=== PATIENT | female | born 1980 | race Caucasian/White ===

== ENCOUNTER 2017-11-24 08:05 | Outpatient (CLI) | payer OTHER ==
[~2017-11-24] VITALS: Ht 154.9 cm; Wt 60.5 kg
--- NOTE | ~2017-11-24 | HEMODYNAMI ---
PATIENT:GIOVANNA ADDISON MEDICAL RECORD: [id number] : 78 LOCATION:[facility] ADMISSION DATE: 11/24/17 Generatedon:11/24/20179:47 Patient name: GIOVANNA ADDISON Patient #: [id number] SSN: : 1980 Date of study: 11/24/2017 Page: Of Hemodynamic Procedure Report Patient Data Patient Demographics Procedure consent was obtained First Name: GIOVANNA Gender: Female Last Name: CYN : 1980 Patient #: [id number] Age: 37 year(s) Race: Unknown Additional ID: [id number] Contact details Address: [place] [address] State: [place] City: [place] Zip code: [address] Past Medical History Allergies Allergen Reaction Date Comments Reported Shellfish 11/24/2017 Penicillins 11/24/2017 Other allergy 11/24/2017 keflex, amoxicillin, bactrim Admission Admission Data Admission Date: 11/24/2017 Admission Time: 8:05 Procedure Procedure Types Cath Procedure Diagnostic Procedure BRIJESH Procedure Description Procedure Date Procedure Date: 11/24/2017 Procedure Start Time: 8:55 Procedure Staff Name Function Shashi Smith MD Performing Physician Megan Pérez RT Monitor Leandro Taylor RT Scrub Corey Lundberg RN Nurse Preston Price Utilization Management Nurse Fernando Raymond [facility] Additional personnel Procedure Data Procedure Complications No complications Procedure Medications Medication Administration Route Dosage 0.9% NaCl I.V. 100 ml/hr Oxygen etCO2 Nasal cannula 2 l/min Hurricaine [place] P.O. Sprays Refer to Anesthesia Notes for Sedation Medications Hemodynamics Rest Heart Rate: 74 (bpm) Snapshots Pre Cath Intra NCS Post Cath Vital Signs Time Heart Resp SPO2 etCO2 NIBP (mmHg) Rhythm Pain Sedation Rate (ipm) (%) (mmHg) Status Level (bpm) 9:08:17 75 16 100 0 161/83(141) NSR 0 (11) 10(A) , No pain 9:13:01 74 15 100 35.3 153/90(122) NSR 0 (11) 10(A) , No pain 9:17:40 69 18 99 26.3 150/96(126) NSR 0 (11) 10(A) , No pain 9:22:59 72 14 99 18 167/105(122) NSR 0 (11) 10(A) , No pain 9:27:44 70 19 99 32.3 157/86(122) NSR 0 (11) 10(A) , No pain 9:32:29 68 18 99 34.6 158/89(125) NSR 0 (11) 10(A) , No pain 9:42:29 70 97 0 123/68(103) NSR 0 (11) 9(A) , No pain 9:47:10 71 21 97 41.4 118/60(89) NSR 0 (11) 9(A) , No pain Medications Time Medication Route Dose Verified Delivered Reason Notes Effectiv eness by by 9:12:33 0.9% NaCl I.V. 100 Corey Corey Per ml/hr Tamika Lundberg physician RN RN 9:12:45 Oxygen etCO2 2 Corey Corey Per Nasal l/min Tamika Lundberg physician cannula RN RN 9:32:24 Hurricaine P.O. Sprays Corey Danielle for local [place] Tamika Smith MD anesthetic RN 9:34:10 Refer to Corey Danielle for Anesthesia Tamika Smith MD sedation Notes for RN Sedation Medications Procedure Log Time Note 8:55:19 PRESTON CARRILLO NOTIFIED. WILL BE READY AT 0930. 8:55:25 ANESTHESIA NOTIFIED. WILL BE HERE AT [address] ARROYO. 8:57:29 Corey Lundberg RN sent for patient. Start room use. 8:57:30 Time tracking: Regular hours (M-F 7:00 - 5:00) 8:57:35 Plan of Care:Hemodynamics will remain stable., Cardiac rhythm will remain stable., Comfort level will be maintained., Respiratory function will remain adequate., Patient/ family verbilizes understanding of procedure., Procedure tolerated without complication., Recovers from procedure without complications.. 9:02:53 Patient arrived from Pre/Post Procedure Room to [facility] 1. Patient remains on bed/stretcher for procedure. 9:02:55 Warm blankets applied, and daysi hugger turned on for patient comfort. 9:02:55 Correct patient and procedure confirmed by team. 9:02:57 Signed procedure consent form obtained from patient. 9:02:58 ECG and BP/O2 sat monitors applied to patient. 9:07:23 Vital chart was started 9:07:37 Full Disclosure recording started 9:07:41 Rhythm: sinus rhythm 9:07:52 H&P Date Dictated: 11/17/2017 Within 30 days and on chart., H&P Addendum completed by physician on day of procedure. (MUST COMPLETE FOR ALL OUTPATIENTS). 9:07:54 Pre-procedure instructions explained to patient. 9:07:55 Pre-op teaching completed and patient verbalized understanding. 9:07:59 Family in patients room. 9:08:01 Patient NPO since Midnight. 9:08:13 Patient allergic to Shellfish 9:08:22 Patient allergic to Penicillins 9:08:51 Patient allergic to Other allergykeflex, amoxicillin, bactrim 9:08:53 Is the patient allergic to Iodine/contrast media? No. 9:08:54 Was the patient premedicated? Yes 9:10:05 Is patient on blood thinner?No 9:10:07 Patient diabetic? No. 9:10:11 Previous problem with sedation/anesthesia? No ? 9:10:12 Snore? Yes 9:10:14 Sleep apnea? No 9:10:15 Deviated septum? No 9:10:16 Opens mouth fully? Yes 9:10:16 Sticks out tongue? Yes 9:10:24 Airway obstruction? Yes Asthma 9:10:27 Dentures? No ? 9:11:04 Pre procedure: right dorsailis pedis pulse 2+ Normal; easily identifiable; not easily obliterated 9:11:06 Modified Amando's test Ulnar < 7 seconds 9:11:07 Patient pain scale 0/10 ?. 9:11:14 IV patent on arrival in left hand with 0.9% NaCl at [facility]. 9:11:18 Lab results completed and on chart. 9:12:33 0.9% NaCl 100 ml/hr I.V. was administered by Corey Lundberg RN; Per physician; 9:12:42 Baseline sample Acquired. 9:12:45 Oxygen 2 l/min etCO2 Nasal cannula was administered by Corey Lundberg RN; Per physician; 9:20:02 Preston Price Aoc Operations Intelligence Officer present for BRIJESH. 9:26:29 Fernando Raymond GRAIN INSPECTOR present and monitoring patient for TIVA. 9:32:20 Final Timeout: patient, procedure, and site verified with staff and physician. All members of the team are in agreement. 9:32:24 Hurricaine [place] Sprays P.O. was administered by Shashi Smith MD; for local anesthetic; 9:32:31 Physical assessment completed. ASA score P 2 - A patient with mild systemic disease as per Shashi Smith MD. 9:32:36 Sedation plan: TIVA Medication:Propofol 9:32:43 Right Radial site verified by team. 9:34:10 Refer to Anesthesia Notes for Sedation Medications was administered by Shashi Smith MD; for sedation; 9:37:38 Use device set Radial Dx or PCI 9:37:39 ACIST Syringe (81397) opened to sterile field. 9:37:40 Medline Cath Pack ([id number]) opened to sterile field. 9:37:40 Bag Decanter (2002S) opened to sterile field. 9:37:41 DIAGNOSTIC WIRE .035 260cm J wire (448954) opened to sterile field. 9:37:42 ACIST Hand Control (62791) opened to sterile field. 9:37:42 ACIST Manifold (54338) opened to sterile field. 9:37:44 Tegaderm 4 x 4 (1626W) opened to sterile field. 9:37:45 MBrace Wrist Support ([id number]) opened to sterile field. 9:37:48 SHEATH 6Fr Prelude Radial ([id number]) opened to sterile field. 9:37:57 BRIJESH started. 9:41:31 BRIJESH completed. 9:41:36 Procedure ended.(Physican Out) 9:41:[address] SMITH. 9:41:57 Sharps counted by scrub and verified by R.N. 9:41:58 Insertion/operative site no bleeding no hematoma. 9:42:10 Post procedure rhythm: unchanged. 9:42:27 Post procedure instruction explained to patient.Patient verbalizes understanding. 9:42:28 Patient needs reinforcement of post procedure teaching. 9:42:35 Procedure type changed to Cath procedure, Diagnostic procedure, BRIJESH 9:42:39 Procedure Complication : No complications 9:42:41 See physician's report for complete and final results. 9:43:15 Report given to Pre/Post Procedure Room. 9:47:23 Vital chart was stopped 9:47:25 Patient transfered to Pre/Post Procedure Room with Stretcher. 9:47:30 End room use (Document Last) Device Usage Item Name Manufacture Quantity Catalog Number Hospital Part Current M inimal Lot# / Charge Number Stock Stock Serial# Code ACIST Syringe Acist 1 10447 279049 258059 003044 2 0 (35866) Medical Systems Inc Medline Cath Cardinal 1 [id number] 079648 92990 132655 5 Pack Health ([id number]) Bag Decanter Microtek 1 2002S 732482 46749 115980 5 (2001S) Medical Inc. DIAGNOSTIC WIRE St Otf 1 262800 261905 166649 379004 3 0 .035 260cm J wire (432122) ACIST Hand Acist 1 89112 101446 956068 596288 5 Control (80704) Medical Systems Inc ACIST Manifold Acist 1 11825 804556 632908 425817 5 (74752) Medical Systems Inc Tegaderm 4 x 4 3M 1 1626W 912202 002807 536492 5 (1626W) MBrace Wrist Advanced 1 140-0250-00 140277 75607 457846 5 Support Vascular ([id number]) Dynamics SHEATH 6Fr Merit 1 [id number] 404768 202820 688511 5 Prelude Radial Medical ([id number]) Signature Audit [place] Stage Time Signature Unsigned Intra-Procedure 11/24/2017 Megan 9:47:49 AM Counts RT(R) Signatures Monitor : Megan Signature : Counts RT Date : Time : [facility] [address] [facility] [place] [address]
--- NOTE | ~2017-11-24 | HEMODYNAMI ---
PATIENT:GIOVANNA ADDISON MEDICAL RECORD: [id number] : 78 LOCATION:[facility] ADMISSION DATE: 11/24/17 Generatedon:11/24/20179:52 Patient name: GIOVANNA ADDISON Patient #: [id number] SSN: : 1980 Date of study: 11/24/2017 Page: Of Hemodynamic Procedure Report Patient Data Patient Demographics Procedure consent was obtained First Name: GIOVANNA Gender: Female Last Name: CYN : 1980 Patient #: [id number] Age: 37 year(s) Race: Unknown Additional ID: [id number] Contact details Address: [place] [address] State: [place] City: [place] Zip code: [address] Past Medical History Allergies Allergen Reaction Date Comments Reported Shellfish 11/24/2017 Penicillins 11/24/2017 Other allergy 11/24/2017 keflex, amoxicillin, bactrim Admission Admission Data Admission Date: 11/24/2017 Admission Time: 8:05 Procedure Procedure Types Cath Procedure Diagnostic Procedure BRIJESH Procedure Description Procedure Date Procedure Date: 11/24/2017 Procedure Start Time: 8:55 Procedure Staff Name Function Megan Pérez RT Monitor Shashi Smith MD Performing Physician Fernando Raymond PIPE LAYER Additional personnel Leandro Taylor RT Scrub Preston Price Logging Truck Driver Corey Lundberg RN Nurse Procedure Data Procedure Complications No complications Procedure Medications Medication Administration Route Dosage 0.9% NaCl I.V. 100 ml/hr Oxygen etCO2 Nasal cannula 2 l/min Hurricaine [place] P.O. Sprays Refer to Anesthesia Notes for Sedation Medications Hemodynamics Rest Heart Rate: 74 (bpm) Snapshots Pre Cath Intra NCS Post Cath Vital Signs Time Heart Resp SPO2 etCO2 NIBP (mmHg) Rhythm Pain Sedation Rate (ipm) (%) (mmHg) Status Level (bpm) 9:08:17 75 16 100 0 161/83(141) NSR 0 (11) 10(A) , No pain 9:13:01 74 15 100 35.3 153/90(122) NSR 0 (11) 10(A) , No pain 9:17:40 69 18 99 26.3 150/96(126) NSR 0 (11) 10(A) , No pain 9:22:59 72 14 99 18 167/105(122) NSR 0 (11) 10(A) , No pain 9:27:44 70 19 99 32.3 157/86(122) NSR 0 (11) 10(A) , No pain 9:32:29 68 18 99 34.6 158/89(125) NSR 0 (11) 10(A) , No pain 9:42:29 70 97 0 123/68(103) NSR 0 (11) 9(A) , No pain 9:47:10 71 21 97 41.4 118/60(89) NSR 0 (11) 9(A) , No pain Medications Time Medication Route Dose Verified Delivered Reason Notes Effectiv eness by by 9:12:33 0.9% NaCl I.V. 100 Corey Corey Per ml/hr Tamika Lundberg physician RN RN 9:12:45 Oxygen etCO2 2 Corey Corey Per Nasal l/min Tamika Lundberg physician cannula RN RN 9:32:24 Hurricaine P.O. Sprays Corey Danielle for local [place] Tamika Smith MD anesthetic RN 9:34:10 Refer to Corey Danielle for Anesthesia Tamika Smith MD sedation Notes for RN Sedation Medications Procedure Log Time Note 8:55:19 PRESTON CARRILLO NOTIFIED. WILL BE READY AT 0930. 8:55:25 ANESTHESIA NOTIFIED. WILL BE HERE AT [address] ARROYO. 8:57:29 Corey Lundberg RN sent for patient. Start room use. 8:57:30 Time tracking: Regular hours (M-F 7:00 - 5:00) 8:57:35 Plan of Care:Hemodynamics will remain stable., Cardiac rhythm will remain stable., Comfort level will be maintained., Respiratory function will remain adequate., Patient/ family verbilizes understanding of procedure., Procedure tolerated without complication., Recovers from procedure without complications.. 9:02:53 Patient arrived from Pre/Post Procedure Room to [facility] 1. Patient remains on bed/stretcher for procedure. 9:02:55 Correct patient and procedure confirmed by team. 9:02:55 Warm blankets applied, and daysi hugger turned on for patient comfort. 9:02:57 Signed procedure consent form obtained from patient. 9:02:58 ECG and BP/O2 sat monitors applied to patient. 9:07:23 Vital chart was started 9:07:37 Full Disclosure recording started 9:07:41 Rhythm: sinus rhythm 9:07:52 H&P Date Dictated: 11/17/2017 Within 30 days and on chart., H&P Addendum completed by physician on day of procedure. (MUST COMPLETE FOR ALL OUTPATIENTS). 9:07:54 Pre-procedure instructions explained to patient. 9:07:55 Pre-op teaching completed and patient verbalized understanding. 9:07:59 Family in patients room. 9:08:01 Patient NPO since Midnight. 9:08:13 Patient allergic to Shellfish 9:08:22 Patient allergic to Penicillins 9:08:51 Patient allergic to Other allergykeflex, amoxicillin, bactrim 9:08:53 Is the patient allergic to Iodine/contrast media? No. 9:08:54 Was the patient premedicated? Yes 9:10:05 Is patient on blood thinner?No 9:10:07 Patient diabetic? No. 9:10:11 Previous problem with sedation/anesthesia? No ? 9:10:12 Snore? Yes 9:10:14 Sleep apnea? No 9:10:15 Deviated septum? No 9:10:16 Sticks out tongue? Yes 9:10:16 Opens mouth fully? Yes 9:10:24 Airway obstruction? Yes Asthma 9:10:27 Dentures? No ? 9:11:04 Pre procedure: right dorsailis pedis pulse 2+ Normal; easily identifiable; not easily obliterated 9:11:06 Modified Amando's test Ulnar < 7 seconds 9:11:07 Patient pain scale 0/10 ?. 9:11:14 IV patent on arrival in left hand with 0.9% NaCl at [facility]. 9:11:18 Lab results completed and on chart. 9:12:33 0.9% NaCl 100 ml/hr I.V. was administered by Corey Lundberg RN; Per physician; 9:12:42 Baseline sample Acquired. 9:12:45 Oxygen 2 l/min etCO2 Nasal cannula was administered by Corey Lorigan RN; Per physician; 9:20:02 Preston Price Application Support Analyst present for BRIJESH. 9:26:29 Fernando Raymond PIPE LAYER present and monitoring patient for TIVA. 9:32:20 Final Timeout: patient, procedure, and site verified with staff and physician. All members of the team are in agreement. 9:32:24 Hurricaine [place] Sprays P.O. was administered by Shashi Smith MD; for local anesthetic; 9:32:31 Physical assessment completed. ASA score P 2 - A patient with mild systemic disease as per Shashi Smith MD. 9:32:36 Sedation plan: TIVA Medication:Propofol 9:32:43 Right Radial site verified by team. 9:34:10 Refer to Anesthesia Notes for Sedation Medications was administered by Shashi Smith MD; for sedation; 9:37:57 BRIJESH started. 9:41:31 BRIJESH completed. 9:41:36 Procedure ended.(Physican Out) 9:41:[address] SMITH. 9:41:57 Sharps counted by scrub and verified by R.N. 9:41:58 Insertion/operative site no bleeding no hematoma. 9:42:10 Post procedure rhythm: unchanged. 9:42:27 Post procedure instruction explained to patient.Patient verbalizes understanding. 9:42:28 Patient needs reinforcement of post procedure teaching. 9:42:35 Procedure type changed to Cath procedure, Diagnostic procedure, BRIJESH 9:42:39 Procedure Complication : No complications 9:42:41 See physician's report for complete and final results. 9:43:15 Report given to Pre/Post Procedure Room. 9:47:23 Vital chart was stopped 9:47:25 Patient transfered to Pre/Post Procedure Room with Stretcher. 9:47:30 End room use (Document Last) 9:47:53 Full Disclosure recording stopped Signature Audit [place] Stage Time Signature Unsigned Intra-Procedure 11/24/2017 Megan Guzman Counts 9:47:49 AM Counts RT(R) RT(R) 11/24/2017 9:50:38 AM Intra-Procedure 11/24/2017 Megan 9:52:45 AM Counts RT(R) Signatures Monitor : Megan Signature : Counts RT Date : Time : [place] [address] [place] [address]
--- NOTE | ~2017-11-24 | TEE ---
PATIENT:GIOVANNA ADDISON MEDICAL RECORD: [id number] LOCATION:[facility] AGE OF PATIENT: 37 ADMISSION DATE: 11/24/17 SEX: F REFERRING PHYSICIAN: INTERPRETING PHYSICIAN: ANABEL SMITH MD TRANSESOPHAGEAL ECHOCARDIOGRAM Date: 11/24/17 BRIJESH CHARGE Y INDICATIONS: ASSESS MITRAL VALVE REGURG PREMEDICATIONS: PATIENT'S RESPONSE PROCEDURE DOPPLER MEASUREMENTS: LVIT LA PA RA LVOT RVOT Asc. Ao AV Gradient Peak AV Mean AV Area MV Gradient Peak MV Mean MV Area INTERPRETATION: Doppler: 2-D: COLOR FLOW DOPPLER TRACE MR NORMAL SALINE STUDY: MISCELLANOUS: DIAGNOSIS: PLAN: Ambulatory Technologist:1 Dr. Smith Wrapper Stitcher: Sharon ESPANA COMMENTS: DATE OF SERVICE: 11/24/2017 PROCEDURE: Transesophageal echo. INDICATION: Mitral regurgitation. PROCEDURE: IV conscious sedation was performed per anesthesia. Continuous heart rate, O2 saturation, blood pressure monitoring all undertaken, all of which remains stable. TRANSESOPHAGEAL ECHOCARDIOGRAM REPORT [id number] GIOVANNA ADDISON FINDINGS: 1. Left ventricular chamber size is within normal limits. Left ventricular systolic function is normal. Overall ejection fraction estimated at 60%. 2. Left atrium, right atrium, and right ventricle chamber sizes are within normal limits. 3. Valvular structures have normal structure and motion. 4. Doppler interrogation only reveals trace mitral regurgitation. No other valvular insufficiency or stenosis. 5. No evidence of pericardial effusion or left ventricular thrombus. OVERALL IMPRESSION: No significant mitral regurgitation is present. Fluid retention is not secondary to mitral valvular disease. TRANSINT:[id number] Voice Confirmation ID: [id number] DOCUMENT ID: [id number] [id number] CC: [id number] DICTATION DATE: 11/24/17 0944 TAR LEVELER: 11/25/17 0355 DEP CLI 11/24/17 [place] [address]
[2017-11-24] MEDS ORDERED: BUMEX2 MG PO (08:23)
[2017-11-24] MEDS ORDERED: PREDNISONE20 MG PO (08:24)
[2017-11-24] MEDS ORDERED: KLOR-CON M2020 MEQ PO (08:24)
[2017-11-24] MEDS ORDERED: TOPROL XL50 MG PO (08:25)
[2017-11-24 08:34] VITALS: BP 145/71; Ht 154.9 cm; Wt 60.5 kg
[2017-11-24 08:41] LABS: BASOPHILS 0.3 % (0-2); EOSINOPHILS 0 % (0-7); HEMATOCRIT 40.8 % (36.0-48.0); HEMOGLOBIN 13.4 g/dL (12-16); IMMATURE GRANULOCYTES 0.3 % (0-5); LYMPHOCYTES 9.7 % (15-50); MCH 29.6 pg (26.0-34.0); MCHC 32.8 g/dL (31.0-37.0); MCV 90.3 fL (80.0-100.0); MEAN PLATELET VOLUME 9.8 fL (7.4-10.4); NEUTROPHILS 88.7 % (40-80); PLATELET COUNT 315 10x3/uL (130-400); RBC 4.52 10x6/uL (4.00-5.40); RDW 14.7 % (11.5-14.5); WBC 7.9 10x3/uL (4.8-10.8)
[2017-11-24 08:52] LABS: HCG SERUM NEGATIVE (NEGATIVE)
[2017-11-24 08:55] LABS: ANION GAP 13.2 mmol/L (8-16); CALCIUM 8.4 mg/dL (8.5-10.1); CARBON DIOXIDE 26.1 mmol/L (21.0-32.0); CREATININE - SERUM 0.9 mg/dL (0.6-1.3); POTASSIUM - SERUM 3.3 mmol/L (3.5-5.1)
== END 2017-11-24 12:30 | disposition home or self-care (01) ==
LOC: D.CATH 08:05
PROVIDERS: Internal Medicine Interventional Cardiology
DX: R60.9 Edema, unspecified (principal); Z01.812 Encounter for preprocedural laboratory examination

== ENCOUNTER → 2018-09-22 16:42 | Outpatient (CLI) | payer OTHER ==
[2017-11-24 08:34] VITALS: BMI 25.1
[~2018-09-22 16:42] MED LIST: BUMEX2 MG PO; KLOR-CON M2020 MEQ PO; PREDNISONE20 MG PO; TOPROL XL50 MG PO
[2018-09-22 17:10] LABS: BASOPHILS 0.6 % (0-2); HEMATOCRIT 35.1 % (36.0-48.0); HEMOGLOBIN 11.1 g/dL (12-16); IMMATURE GRANULOCYTES 0.3 % (0-5); LYMPHOCYTES 36.4 % (15-50); MCH 25.7 pg (26.0-34.0); MCHC 31.6 g/dL (31.0-37.0); MCV 81.3 fL (80.0-100.0); MEAN PLATELET VOLUME 9.3 fL (7.4-10.4); MONOCYTES 13.6 % (2-11); NEUTROPHILS 43.1 % (40-80); PLATELET COUNT 374 10x3/uL (130-400); RBC 4.32 10x6/uL (4.00-5.40); RDW 16.6 % (11.5-14.5); WBC 6.5 10x3/uL (4.8-10.8)
== END | disposition home or self-care (01) ==
LOC: D.LABREF 16:42
PROVIDERS: ATTEND Internal Medicine Interventional Cardiology
DX: R06.02 Shortness of breath (principal)

== ENCOUNTER 2019-10-19 21:25 | Emergency (ER) | payer OTHER ==
[~2019-10-19] VITALS: Ht 154.9 cm; Wt 64.5 kg
[2019-10-19 21:32] VITALS: Ht 154.9 cm; Wt 64.5 kg
[2019-10-19] MEDS ORDERED: ULTRAM50 MG PO (22:33)
[2019-10-19 22:49] VITALS: BP 167/95
== END 2019-10-19 22:48 | disposition home or self-care (01) ==
LOC: D.ER 21:25
DX: S90.31XA Contusion of right foot, initial encounter (principal); I10 Essential (primary) hypertension; E07.9 Disorder of thyroid, unspecified; Z72.0 Tobacco use; W20.8XXA Other cause of strike by thrown, projected or falling object, initial encounter; Y93.9 Activity, unspecified; Y92.9 Unspecified place or not applicable